=== PATIENT | female | born 1990 | race American Indian/Alaskan Native ===

== ENCOUNTER 2017-10-06 22:09 | Emergency (ER) | payer MEDICAID ==
[2017-10-06] MEDS ORDERED: DILAUDID IM ONE (23:01)
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
[2017-10-07] MEDS ORDERED: SUBLIMAZE IV ONE ×2 (00:04→01:37)
--- NOTE | 2017-10-07 00:36 | XRay Report ---
FINAL REPORT PROCEDURE: XR FOOT 2V LT TECHNIQUE: LEFT ankle radiographs, AP, lateral, and oblique views. CPT 04449 HISTORY: left foot pain fall COMPARISON: No prior studies are available for comparison. FINDINGS: Fracture (s) and/or Dislocation(s): There is a fracture of the distal fibula. Talus and calcaneus are intact. Tarsal bones, metatarsal bones and phalanges are intact. Alignment: Normal. Joint space(s): Normal. Soft tissues: There is lateral soft tissue swelling... Bone mineralization: Normal. Foreign bodies: None. Calcaneal spurring: None. IMPRESSION: Fracture of the distal fibula..
--- NOTE | 2017-10-07 00:42 | XRay Report ---
FINAL REPORT PROCEDURE: XR ANKLE 3+V LT TECHNIQUE: LEFT ankle radiographs, AP, lateral, and oblique views. CPT 28510 HISTORY: Fall twisted ankle COMPARISON: No prior studies are available for comparison. FINDINGS: Fracture (s) and/or Dislocation(s): There are fractures of the distal tibia and fibula. The talus and calcaneus are intact.. Alignment: Normal. Joint space(s): Normal. Soft tissues: There is lateral soft tissue swelling.. Bone mineralization: Normal. Foreign bodies: None. Calcaneal spurring: None. IMPRESSION: There are fractures of the distal tibia and fibula. The talus and calcaneus are intact.. There is no joint dislocation. There is lateral soft tissue swelling.. .
--- NOTE | 2017-10-07 00:43 | XRay Report ---
FINAL REPORT PROCEDURE: XR KNEE 1-2V LT TECHNIQUE: LEFT knee radiographs, AP and lateral views. CPT 76754 HISTORY: left knee pain fall COMPARISON: No prior studies are available for comparison. FINDINGS: Fracture (s) and/or Dislocation(s): None . Alignment: Normal . Joint space(s): Normal . Soft tissues: Normal . Bone mineralization: Normal . Foreign bodies: None . IMPRESSION: Normal Examination.
--- NOTE | 2017-10-07 00:46 | XRay Report ---
FINAL REPORT PROCEDURE: XR TIBIA FIBULA 2V LT TECHNIQUE: LEFT tibia and fibula radiographs, AP and lateral views. CPT 28288 HISTORY: left leg pain fall COMPARISON: No prior studies are available for comparison. FINDINGS: Fracture (s) and/or Dislocation(s): There are nondisplaced fractures of the distal tibia and fibula.. Joint space(s): Normal . Soft tissues: Normal . Bone mineralization: Normal . Foreign bodies: None . IMPRESSION: Fractures of the distal tibia and fibula..
--- NOTE | 2017-10-07 02:02 | Cat Scan Report ---
FINAL REPORT PROCEDURE: CT FACIAL BONES WO CON TECHNIQUE: Computerized tomography of the facial bones and soft tissues with axial and coronal sections performed from the cranial aspect of the frontal sinuses to the caudal portion of the mandible without contrast material. HISTORY: left facial pain and swelling COMPARISON: No prior studies are available for comparison. FINDINGS: Bones: There is a fracture of the left side of the nasal bone. The anterior maxillary spine is intact. The mandible and temporomandibular joints are intact. Bony orbital mike are intact.. Paranasal sinuses: Clear. Soft tissues: There is a left temporal and facial soft tissue swelling. There is no discrete mass. There is no hematoma.. Other: None. IMPRESSION: There is a fracture of the left side of the nasal bone. There is a left temporal and facial soft tissue swelling. There is no discrete mass. There is no hematoma..
[2017-10-07 02:55] VITALS: BP 164/91
== END 2017-10-07 02:54 ==
LOC: ED 22:09
DX: S82.302A Unspecified fracture of lower end of left tibia, initial encounter for closed fracture (principal); S82.832A Other fracture of upper and lower end of left fibula, initial encounter for closed fracture; R51 Headache; R56.9 Unspecified convulsions; F17.200 Nicotine dependence, unspecified, uncomplicated; W19.XXXA Unspecified fall, initial encounter; Y93.89 Activity, other specified; Y99.8 Other external cause status; Y92.89 Other specified places as the place of occurrence of the external cause
CPT/HCPCS: 29515; 70486; 73560; 73590; 73610; 73620; 81025; 96372; 96374; 96375; 99285; J1170; J3010

== ENCOUNTER 2017-11-12 09:00 | Day surgery (SDC) | payer MEDICAID ==
[~2017-11-12 09:00] MED LIST: ANCEF/STERILE WATER 2 GM/20 ML IV NR; LACTATED RINGERS 1,000 ML IV SCH; PEPCID PO NR; SUBLIMAZE IV ONE; VERSED IV NR
[2017-11-12 10:26] LABS: Hematocrit 38.1 % (30.3-42.9); Hemoglobin 12.5 gm/dl (10.1-14.3)
--- NOTE | 2017-11-12 10:32 | Anesthesia Day of Surgery ---
Anesthesia Day of Surgery - Day of Surgery Patient Examined: Yes Patient is NPO: Yes
--- NOTE | 2017-11-12 10:32 | Anesthesia Consultation ---
Anesthesia Consult and Med Hx Date of service: 11/12/17 - Airway Anesthetic Teeth Evaluation: Good, Chipped (bottom molars) ROM Head & Neck: Adequate Mental/Hyoid Distance: Adequate Mallampati Class: Class II Intubation Access Assessment: Probably Good - Pulmonary Exam CTA: Yes - Cardiac Exam Cardiac Exam: RRR - Pre-Operative Health Status ASA Pre-Surgery Classification: ASA2 Proposed Anesthetic Plan: General Nerve Block: Pop - Pulmonary Hx Smoking: Yes (1/2 PPD ) Hx Asthma: No COPD: No Hx Pneumonia: No Hx Sleep Apnea: No (JESUSITA PRE SCREEN LOW RISK) - Cardiovascular System Hx Hypertension: No - Central Nervous System Hx Seizures: Yes ( CHILD- LAST ONE AT AGE 10 , NO MEDS X 10 YRS) Hx Psychiatric Problems: Yes - Endocrine Hx Renal Disease: No Hx End Stage Renal Disease: No Hx Hypothyroidism: No Hx Hyperthyroidism: No - Hematic Hx Anemia: Yes Hx Sickle Cell Disease: No - Other Systems Hx Alcohol Use: Yes (AT LEAST 6 BEERS PER DAY) Hx Substance Use: Yes (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
--- NOTE | 2017-11-12 11:27 | XRay Report ---
Left tibia: Followup fracture. The examination performed on portable basis. AP and lateral views demonstrate a spiral fracture through the distal shaft of the tibia as well as the distal fibula fracture. There is mild angulation and moderate offset of the tibial fracture and there is periosteal new bone formation. There is separation of the distal fibula fracture also containing new bone formation with good alignment. There is generalized soft tissue swelling [id number]. These findings are essentially unchanged compared to the prior exam on October 06, 2017. Impression: Healing fibular and tibial fractures with alignment as described.
[2017-11-12] MEDS ORDERED: DIPRIVAN 10 MG/ML IV ONE (12:13)
[2017-11-12] MEDS ORDERED: XYLOCAINE MPF 2% ONE (12:14)
[2017-11-12] MEDS ORDERED: ZOFRAN ONE (12:30)
[2017-11-12] MEDS ORDERED: PEPCID PO NR (13:00)
[2017-11-12] MEDS ORDERED: SUBLIMAZE IV SCH (13:00)
[2017-11-12] MEDS ORDERED: NEURONTIN PO NR (13:00)
[2017-11-12] MEDS ORDERED: DILAUDID ONE ×2 (13:10→14:31)
[2017-11-12] MEDS ORDERED: MARCAINE 0.5% 30 ML INFILTRATI ONE (14:00)
[2017-11-12] MEDS ORDERED: MARCAINE 0.5% INFILTRATI ONE (14:10)
[2017-11-12] MEDS ORDERED: TORADOL ONE (14:46)
[2017-11-12] MEDS ORDERED: ZOFRAN IV PRN (14:55)
[2017-11-12] MEDS ORDERED: MORPHINE IV PRN (14:55)
--- NOTE | 2017-11-12 15:08 | Procedure Note ---
Date of procedure: 11/12/17 Pre-op diagnosis: displaced left distal tibia fibular fracture Post-op diagnosis: same Procedure: Closed reduction insertion of intramedullary nail left tibia Procedure The patient was brought to the OR placed in the aortocaval supine position following induction and intubation by anesthesia patient's left lower extremity was prepped and draped in the usual sterile manner. A timeout procedure was done to identify the patient and the correct operative site. The leg was exsanguinated followed by inflation of the pneumatic tourniquet to 300 mmHg. An incision was made over the patella tendon is taken down sharply through skin and subcutaneous the tendon was seen and was split longitudinally, a Gelpi retractor was used to separate the patella tendon next a large awl was used to enter the proximal canal this was followed by placement of a guidewire down the shaft and across the fracture site into the distal tibia again AP and lateral view was obtained using a C-arm fluoroscope. The medullary canal was then reamed to a 11 mm diameter measuring the length a 330 mm length cleopatra was selected. Using the antegrade approach the 10 x 330mm was inserted under C-arm visualization. Proximal and distal locking screws were inserted without complications. Using the C-arm fluoroscopy the knee was scan as well as the ankle the hardware appeared to be in good position as well as the overall fracture alignment was in a more acceptable position. Next the incision was copiously irrigated followed by closure of the patella tendon subcutaneous and skin with Vicryl and nylon sutures. Routine postop doses were applied the patient tolerated the procedure there were no complications she was sent to postanesthesia recovery in stable condition Anesthesia: GETA Surgeon: NOÉ KAMINSKI (Jarrett Chowdhury 1st general surgery physician assistant) Estimated blood loss: minimal Pathology: none Condition: stable Disposition: PACU
[2017-11-12] MEDS ORDERED: APRESOLINE ONE (15:14)
--- NOTE | 2017-11-12 15:27 | Post Anesthesia Evaluation ---
- Post Anesthesia Evaluation Patient Participated: Yes Airway Patent: Yes Stable Respiratory Function: Yes Nausea/Vomiting: No Temp > 96.8F: Yes Pain Manageable: Yes Adequeate Hydration: Yes Anesthesia Complications: No Block Receding Appropriately: Not Applicable Patient on Ventilator: No
[2017-11-12 19:12] VITALS: BP 129/82
--- NOTE | 2017-11-12 22:20 | XRay Report ---
FINAL REPORT EXAM: XR TIBIA FIBULA 2V LT HISTORY: LT TIBIA RODDING/LT TIBIA FX TECHNIQUE: Four intraoperative views of the tibia Comparison: Plain film 10/06/2017 FINDINGS: Intraoperative images demonstrate intramedullary cleopatra placement for spiral distal tibial shaft/metaphyseal fracture with adjacent callus formation. There is a screw each end of the cleopatra. There is mild offset of the distal fracture fragment relative to the proximal fracture fragment which cannot be measured on the C-arm images. IMPRESSION: Intramedullary cleopatra placement for distal tibial diametaphyseal subacute spiral fracture. Alignment as above.
== END 2017-11-12 17:04 | disposition home or self-care (01) ==
LOC: OR 09:00
PROVIDERS: ATTEND Orthopaedic Surgery
PROC: 0QSG04Z Reposition Right Tibia with Internal Fixation Device, Open Approach (ICD-10-PCS; principal; 2017-11-12)
DX: S82.392A Other fracture of lower end of left tibia, initial encounter for closed fracture (principal); S82.492A Other fracture of shaft of left fibula, initial encounter for closed fracture; F17.210 Nicotine dependence, cigarettes, uncomplicated; Z79.899 Other long term (current) drug therapy; W19.XXXA Unspecified fall, initial encounter; Y93.89 Activity, other specified; Y92.89 Other specified places as the place of occurrence of the external cause
CPT/HCPCS: 27827; 36415; 73590; 81025; 85014; 85018; C1713; J0360; J0690; J1170; J1885; J2250; J2405; J2704; J7120; L8699

== ENCOUNTER 2020-01-03 16:42 | Outpatient (CLI) | payer MEDICAID ==
--- NOTE | 2020-01-03 17:34 | XRay Report ---
BILATERAL FORELEGS 4 VIEWS TOTAL, 2 VIEWS EACH INDICATION / CLINICAL INFORMATION: BILATERAL LOWER LEG PAIN. COMPARISON: None available. FINDINGS: Right foreleg: No fracture, dislocation or skeletal abnormality is seen Left foreleg: Intramedullary nail traverses old healed fracture of left distal tibia. Old healed dist al fibular fracture is also noted. No acute fracture or dislocation is seen within left foreleg. Signer Name: Arley Martinez MD Signed: 01/03/2020 5:29 PM Workstation Name: [id number]
== END 2020-01-03 16:43 | disposition home or self-care (01) ==
LOC: XRAY 16:42
PROVIDERS: ATTEND Student in an Organized Health Care Education/Training Program
DX: M79.662 Pain in left lower leg (principal); M79.661 Pain in right lower leg